=== PATIENT | female | born 1955 | race Caucasian/White ===

== ENCOUNTER → 2021-12-03 14:19 | Outpatient (CLI) | payer MEDICARE, SELFPAY | PROVIDERS: PCP Physician Assistant; Referring Provider Physician Assistant; Visit Provider Physician Assistant | DX: Z13.820 Encounter for screening for osteoporosis; Z78.0 Asymptomatic menopausal state; M81.0 Age-related osteoporosis without current pathological fracture; Z90.710 Acquired absence of both cervix and uterus | CPT/HCPCS: 77080 ==

== ENCOUNTER → 2022-02-02 10:22 | Outpatient (CLI) | payer OTHER, SELFPAY ==
[2022-02-02 13:14] LABS: COVID19 -Nasal RAPID Negative (Negative)
== END ==
PROVIDERS: PCP Internal Medicine; Visit Provider Surgery
DX: Z01.812 Encounter for preprocedural laboratory examination (principal); Z20.822 Contact with and (suspected) exposure to COVID-19
CPT/HCPCS: 87635; C9803

== ENCOUNTER 2022-02-03 08:49 | Day surgery (SDC) | payer OTHER, SELFPAY ==
--- NOTE | 2022-02-03 | PATH_ITS ---
[facility] Accession Number: [id number] . 01 Material submitted: . colon - ASCENDING COLON POLYP . 01 Clinical history: . [facility] [place] ENCOUNTER FOR SCRENEING FOR MALIGNANT NEOPLASM . 01 Diagnosis: Ascending Colon, Polyp, Biopsy: Tubular adenoma. MRV 02/05/2022 0926 Local . 01 Electronically signed: . Leonila Christie MD, Pathologist NPI- [id number] . 01 Gross description: . ASCENDING COLON POLYP: Received in formalin are 4 fragment(s) of roach, soft tissue measuring 0.3 x 0.2 x 0.2 cm to 0.1 x 0.1 x 0.1 cm submitted entirely in 1 cassette(s) /CPE 02/04/2022 0743 Local . 01 Pathologist provided ICD-10: D12.2 . 01 CPT . 033651 Performed at: 01 [facility] [address] [place] [address] [address], [place], [place] [id number] MD Benji Washington MD Phone: [phone]
[2022-02-03 09:11] VITALS: BP 141/73; PULSE 78; RESP 16; TEMP 36.2; O2SAT 98; BMI 20.9
[2022-02-03] MEDS: LACTATED RINGERS 1,000 ML 200 ML IV (09:24)
--- NOTE | 2022-02-03 09:39 | PM.HP.1 ---
History of Present Illness History of Present Illness Date Patient Seen: 02/03/22 Time Patient Seen: 09:39 Chief complaint: SDC Narrative: The patient presents for colorectal screening. Previous colonoscopy 10 years ago normal. No personal or family history of colon cancer. On further history denies any recent gastrointestinal symptoms. No nausea, vomiting, abdominal pain, loss of appetite, unexplained weight loss, change in bowel habits, diarrhea, constipation, melena, hematochezia, or bright red blood per rectum. Patient History Family & Social History Social History: household members none Tobacco & Substance use: Smoking Status Never smoker alcohol intake current alcohol intake frequency 0-2 drinks per day Substance Use Type does not use Meds Home Medications and Allergies Home Medications Medication Instructions Recorded Confirmed Type alendronate 10 mg tablet 10 mg PO DAILY 02/03/22 02/03/22 History citalopram 20 mg tablet 20 mg PO DAILY 02/03/22 02/03/22 History rosuvastatin 10 mg tablet 10 mg PO DAILY 02/03/22 02/03/22 History verapamil 180 mg tablet,extended 180 mg PO DAILY 02/03/22 02/03/22 History release Allergies Allergy/AdvReac Type Severity Reaction Status Date / Time iodine Allergy Rash Verified 02/03/22 09:08 Penicillins Allergy Rash Verified 02/03/22 09:08 Sulfa (Sulfonamide Allergy Rash Verified 02/03/22 09:08 Antibiotics) Exam Vital Signs (past 8 hours): - 02/03/22 09:11 Temperature 97.2 F L Pulse Rate 78 Respiratory Rate 16 Blood Pressure 141/73 H Pulse Oximetry 98 Oxygen Delivery Method Room Air Oxygen Flow Rate 0 Oxygen Delivery Method Room Air Oxygen Flow Rate 0 Narrative Exam Narrative: General adult woman alert oriented no acute distress chest nonlabored respirations Abdomen soft nontender nondistended Assessment & Plan Assessment & Plan narrative: The patient requires colorectal screening and colonoscopy is recommended. Technical details were discussed. Risks, benefits, alternatives explained. Risks including but not limited to myocardial infarction, aspiration, bleeding, pain, missed lesion, incomplete examination, need for further radiographic studies, colonic perforation, and need for major abdominal surgery were discussed. All questions were answered to their satisfaction, and they are in agreement with this plan. Time Spent With Patient Critical Care time: I spent a total of [] minutes of critical care time on this patient's care today; this time is exclusive of procedural time.
--- NOTE | 2022-02-03 09:40 | P.OP.COLON_ITS ---
Operative Date/Time/Diagnoses Date of procedure: 02/03/22 Time of procedure: 09:40 Pre-op diagnosis: Screening Post-op diagnosis: same Procedure & Clinicians Study performed: Colonoscopy Same procedure as scheduled: Yes Indications: Screening Surgeon: Julio Shearer Procedure Notes Procedure in detail: Medications: Conscious sedation using 6mg IV midazolam and 200mcg IV of fentanyl The history and physical was performed/updated and the patient is ASA class is 2. The procedure was discussed in detail with the patient. Potential risks complications including infection, bleeding, missed diagnosis, perforation, need for surgery, and were explained. Their questions were answered and informed consent was obtained. Patient was brought to the procedure room and placed standard monitoring equipment. The patient's vital signs were monitored continuously throughout the entire procedure. Prior to starting time-out was performed. The patient was placed in the left lateral recumbent position. Procedural sedation was adminis tered. Examination began with a thorough inspection of the perianal area there was no evidence of fissures, fistulae, external hemorrhoids or cutaneous malignancy. The colonoscopy scope was then placed into the anal canal and was advanced to the cecum, which was identified by the ileocecal valve, the appendiceal orifice and the confluence of the taenia. The scope was then slowly withdrawn examining colon thoroughly in all directions, irrigating it of any residual stool. FINDINGS 1. Ascending colon-5 mm polyp removed with biopsy forceps 2. Tortuous colon The patient tolerated the procedure well. They will be discharged once criteria are met. The prep was of good/excellent quality. The withdrawl time was 7 minutes. The sedation time was 42 minutes. Specimen(s): other (Ascending colon polyp) Impression: Colonic polyp Post-procedure Recommendations: Colonoscopy in 5 years Disposition: same day surgery
[2022-02-03] MEDS: ONDANSETRON 4 MG/2 ML INJ IV (09:42)
[2022-02-03] MEDS: fentaNYL 100 MCG/2 ML INJ 200 MCG IV (10:15)
[2022-02-03] MEDS: MIDAZOLAM 5 MG/5 ML VIAL 6 MG IV (10:15)
[2022-02-03 10:35] VITALS: BP 133/71; PULSE 88; RESP 16; TEMP 37.2; O2SAT 95
[2022-02-03 10:43] VITALS: BP 124/69; PULSE 80; RESP 13; O2SAT 96
[2022-02-03 10:45] VITALS: BP 111/65; PULSE 79; RESP 10; O2SAT 96
[2022-02-03 10:50] VITALS: BP 126/66; PULSE 84; RESP 11; TEMP 36.7; O2SAT 96
--- NOTE | 2022-02-03 10:59 | SUR.PHASEII ---
Patient dozing intermittently. Oral intake provided. Call light within reach. Spouse updated.
[2022-02-03 11:32] VITALS: BP 109/66; PULSE 76; RESP 10; TEMP 36.2; O2SAT 95
[2022-02-03] MEDS: ACETAMINOPHEN 325 MG TABLET 650 MG PO (11:55)
--- NOTE | 2022-02-03 11:56 | SUR.PHASEII ---
Patient c/o 10/[address] Shearer notified, tylenol ordered and given.
== END 2022-02-03 12:01 | disposition home or self-care (01) ==
PROVIDERS: PCP Internal Medicine; Referring Provider Surgery; Visit Provider Surgery
PROC: 0DJD8ZZ Inspection of Lower Intestinal Tract, Via Natural or Artificial Opening Endoscopic (ICD-10-PCS; CPT 45378; principal; 2022-02-03 10:00)
DX: Z12.11 Encounter for screening for malignant neoplasm of colon (principal); D12.2 Benign neoplasm of ascending colon
CPT/HCPCS: 45380; 99152; 99153; J2250; J2405; J3010